=== PATIENT | female | born 1960 | race American Indian/Alaskan Native ===

== ENCOUNTER 2020-04-03 12:08 | Outpatient (CLI) | payer OTHER ==
[2020-04-03] MEDS ORDERED: ALBUTEROL 2.5 MG/3 ML NEBU IH ONE (12:53)
== END 2020-04-03 12:09 | disposition home or self-care (01) ==
LOC: PF 12:08
PROVIDERS: ATTEND Internal Medicine
DX: J44.9 Chronic obstructive pulmonary disease, unspecified (principal)
CPT/HCPCS: 94060; 94640

== ENCOUNTER → 2021-07-03 | Outpatient (CLI) | payer MEDICAID | END | disposition home or self-care (01) | LOC: SLR 11:00 | PROVIDERS: ATTEND Internal Medicine | DX: G47.33 Obstructive sleep apnea (adult) (pediatric) (principal); I10 Essential (primary) hypertension; J44.9 Chronic obstructive pulmonary disease, unspecified; R40.0 Somnolence | CPT/HCPCS: G0399 ==

== ENCOUNTER 2021-10-15 11:00 | Outpatient (CLI) | payer MEDICAID | END 2021-10-15 11:01 | disposition home or self-care (01) | LOC: SLR 11:00 | PROVIDERS: ATTEND Internal Medicine | DX: G47.33 Obstructive sleep apnea (adult) (pediatric) (principal) | CPT/HCPCS: 95811 ==